=== PATIENT | male | born 1955 | race Caucasian/White ===

== ENCOUNTER → 2020-06-21 10:30 | Outpatient (BNVA) | payer MEDICARE, SELFPAY | PROVIDERS: Family Provider Internal Medicine; Visit Provider Nurse Practitioner Family | DX: E78.5 Hyperlipidemia, unspecified (principal) | CPT/HCPCS: 80053; 80061; 83036; 84443; 85025 ==

== ENCOUNTER → 2021-12-23 10:31 | Outpatient (BNVA) | payer MEDICARE, SELFPAY | PROVIDERS: Family Provider Internal Medicine; PCP Internal Medicine; Visit Provider Internal Medicine | DX: E78.5 Hyperlipidemia, unspecified (principal); G47.33 Obstructive sleep apnea (adult) (pediatric) | CPT/HCPCS: 80053; 80061; 84443; 85025 ==

== ENCOUNTER → 2022-12-04 10:54 | Outpatient (BNVA) | payer MEDICARE, SELFPAY | PROVIDERS: Family Provider Internal Medicine; PCP Family Medicine; Visit Provider Family Medicine | DX: E78.5 Hyperlipidemia, unspecified (principal); H93.19 Tinnitus, unspecified ear; T14.8XXA Other injury of unspecified body region, initial encounter; W57.XXXA Bitten or stung by nonvenomous insect and other nonvenomous arthropods, initial encounter | CPT/HCPCS: 80053; 80061; 84443; 85025; 86618; 86666; 86757 ==

== ENCOUNTER → 2022-12-14 13:41 | Outpatient (BNVA) | payer MEDICARE, SELFPAY | PROVIDERS: Family Provider Internal Medicine; PCP Family Medicine; Visit Provider Nurse Practitioner Family | DX: L57.0 Actinic keratosis (principal); L81.4 Other melanin hyperpigmentation; D22.5 Melanocytic nevi of trunk; L85.3 Xerosis cutis; L57.8 Other skin changes due to chronic exposure to nonionizing radiation; Z71.89 Other specified counseling | CPT/HCPCS: 17004; 99213 ==

== ENCOUNTER → 2023-06-17 13:16 | Outpatient (BNVA) | payer MEDICARE, SELFPAY | PROVIDERS: Family Provider Internal Medicine; PCP Family Medicine; Visit Provider Nurse Practitioner Family | DX: L57.0 Actinic keratosis (principal); L81.4 Other melanin hyperpigmentation; D22.5 Melanocytic nevi of trunk; L57.8 Other skin changes due to chronic exposure to nonionizing radiation; D22.62 Melanocytic nevi of left upper limb, including shoulder | CPT/HCPCS: 17000; 99213 ==

== ENCOUNTER → 2023-08-05 09:49 | Outpatient (BNVA) | payer MEDICARE, SELFPAY | PROVIDERS: Family Provider Internal Medicine; PCP Family Medicine; Visit Provider Family Medicine | DX: I10 Essential (primary) hypertension (principal); E78.5 Hyperlipidemia, unspecified; Z13.6 Encounter for screening for cardiovascular disorders | CPT/HCPCS: 80053; 80061 ==

== ENCOUNTER → 2023-09-03 08:40 | Outpatient (BNVA) | payer MEDICARE, SELFPAY | PROVIDERS: Family Provider Internal Medicine; PCP Family Medicine; Visit Provider Family Medicine | DX: E78.5 Hyperlipidemia, unspecified (principal); I10 Essential (primary) hypertension | CPT/HCPCS: 80048 ==

== ENCOUNTER → 2023-12-16 15:13 | Outpatient (BNVA) | payer MEDICARE, SELFPAY | PROVIDERS: Family Provider Internal Medicine; PCP Family Medicine; Visit Provider Dermatology | DX: D48.5 Neoplasm of uncertain behavior of skin (principal); L57.0 Actinic keratosis; L81.4 Other melanin hyperpigmentation; D22.5 Melanocytic nevi of trunk; B07.8 Other viral warts; L91.8 Other hypertrophic disorders of the skin | CPT/HCPCS: 11102; 17004; 17110; 99213 ==

== ENCOUNTER → 2024-01-05 07:57 | Outpatient (BNVA) | payer MEDICARE, SELFPAY | PROVIDERS: Family Provider Internal Medicine; PCP Family Medicine; Visit Provider Dermatology | DX: C44.612 Basal cell carcinoma of skin of right upper limb, including shoulder (principal) | CPT/HCPCS: 11603; 13121 ==

== ENCOUNTER → 2024-01-18 09:40 | Outpatient (BNVA) | payer MEDICARE, SELFPAY | PROVIDERS: Family Provider Internal Medicine; PCP Family Medicine; Visit Provider Dermatology | DX: C44.319 Basal cell carcinoma of skin of other parts of face (principal); Z48.02 Encounter for removal of sutures; L82.0 Inflamed seborrheic keratosis | CPT/HCPCS: 13132; 17110; 17311 ==

== ENCOUNTER → 2024-04-10 09:31 | Outpatient (BNVA) | payer MEDICARE, SELFPAY | PROVIDERS: Family Provider Internal Medicine; PCP Family Medicine; Visit Provider Specialist | DX: S62.317A Displaced fracture of base of fifth metacarpal bone, left hand, initial encounter for closed fracture; W18.30XA Fall on same level, unspecified, initial encounter | CPT/HCPCS: 73130 ==

== ENCOUNTER 2024-04-10 12:28 | Outpatient (CLI) | payer MEDICARE, SELFPAY | END 2024-04-10 12:29 | disposition home or self-care (01) | LOC: SPT 12:29 | PROVIDERS: Family Provider Internal Medicine; PCP Family Medicine; Visit Provider Specialist | DX: Z46.89 Encounter for fitting and adjustment of other specified devices (principal); S62.317D Displaced fracture of base of fifth metacarpal bone, left hand, subsequent encounter for fracture with routine healing; X58.XXXD Exposure to other specified factors, subsequent encounter | CPT/HCPCS: 26600; 97760; 99204; L3984 ==

== ENCOUNTER 2024-04-11 12:48 | Outpatient (CLI) | payer MEDICARE, SELFPAY ==
--- NOTE | 2024-04-11 13:00 | MR_ITS ---
WS: [id number] MRI HEAD WITH CONTRAST TECHNIQUE: Sagittal T1, T2 axial, T2 axial FLAIR, axial susceptibility weighted imaging, axial diffus ion weighted images, and coronal T2 images were obtained. Pre and post-T1 axial and post T1 coronal i mages. ADC and FSPGR images. CLINICAL INFORMATION: dizziness COMPARISON: MRI 2019 FINDINGS: No evidence of restricted diffusion to suggest acute ischemia. Ventricular system and basal cisterns are patent. Mild small vessel changes. Mild parenchymal volume loss. Normal posterior fossa. Normal vascular flow voids at the skull base. No extra-axial fluid collections. No evidence of mass or mass effect. Mild mucosal thickening in the ethmoid air cells. Mastoid air cells are well aerated. No hemosiderin on susceptibility-weighted images. Incidental benign venous angioma RIGHT cerebellar v ermis. No abnormal intracranial enhancement. Normal dural venous sinuses. Normal optic chiasm and pit uitary infundibulum. No other suspicious findings. MR/MR head wo/w con [id number] IMPRESSION: 1. No evidence of restricted diffusion to suggest acute ischemia 2. Mild small vessel changes. Mild parenchymal volume loss. 3. No hemosiderin on susceptibility-weighted images. 4. Incidental benign venous angioma RIGHT cerebellar vermis. 5. No abnormal intracranial enhancement.
--- NOTE | 2024-04-11 13:45 | MR_ITS ---
WS: [id number] MRA HEAD TECHNIQUE: Axial 3-D TOF images obtained with axial images and axial, sagittal, and coronal 2-D refor matted images. CLINICAL INFORMATION: R42 - Dizziness and giddiness COMPARISON: None. FINDINGS: Distal vertebral arteries are patent. Basilar artery is patent. Normal vascularity to the [employer] territo ry bilaterally. Both ICAs are patent at the skull base. Normal vascularity to the GYPSY and MCA territories bilaterally . No evidence of proximal flow-limiting stenosis or aneurysm. MR/MR angio head wo con [id number] IMPRESSION: 1. Normal intracranial MRA.
[2024-04-11] MEDS: gadobenate dimeglumine 20 mL vial IV (14:04)
== END 2024-04-11 12:49 | disposition home or self-care (01) ==
LOC: RAD 12:48
PROVIDERS: Family Provider Internal Medicine; PCP Family Medicine; Visit Provider Family Medicine
DX: R42 Dizziness and giddiness (principal); I10 Essential (primary) hypertension; D18.02 Hemangioma of intracranial structures
CPT/HCPCS: 70544; 70553; A9577

== ENCOUNTER → 2024-04-24 12:43 | Outpatient (BNVA) | payer MEDICARE, SELFPAY | PROVIDERS: Family Provider Internal Medicine; PCP Family Medicine; Visit Provider Family Medicine | DX: R42 Dizziness and giddiness (principal); E03.9 Hypothyroidism, unspecified | CPT/HCPCS: 80053; 82607; 84443; 85025 ==

== ENCOUNTER → 2024-05-01 09:49 | Outpatient (BNVA) | payer MEDICARE, SELFPAY | PROVIDERS: Family Provider Internal Medicine; PCP Family Medicine; Visit Provider Specialist | DX: S62.317D Displaced fracture of base of fifth metacarpal bone, left hand, subsequent encounter for fracture with routine healing; X58.XXXD Exposure to other specified factors, subsequent encounter | CPT/HCPCS: 73130; 99024 ==

== ENCOUNTER → 2024-05-17 11:01 | Outpatient (BNVA) | payer MEDICARE, SELFPAY | PROVIDERS: Family Provider Internal Medicine; PCP Family Medicine; Visit Provider Specialist | DX: S62.317D Displaced fracture of base of fifth metacarpal bone, left hand, subsequent encounter for fracture with routine healing (principal); X58.XXXD Exposure to other specified factors, subsequent encounter | CPT/HCPCS: 73130; 99024 ==

== ENCOUNTER → 2024-06-27 12:57 | Outpatient (BNVA) | payer MEDICARE, SELFPAY | PROVIDERS: Family Provider Internal Medicine; PCP Family Medicine; Visit Provider Dermatology | DX: L57.0 Actinic keratosis (principal); D22.5 Melanocytic nevi of trunk; L81.4 Other melanin hyperpigmentation; Z08 Encounter for follow-up examination after completed treatment for malignant neoplasm; Z85.828 Personal history of other malignant neoplasm of skin | CPT/HCPCS: 17000; 99214 ==

== ENCOUNTER → 2024-12-18 08:09 | Outpatient (BNVA) | payer MEDICARE, SELFPAY | PROVIDERS: Family Provider Internal Medicine; PCP Family Medicine; Visit Provider Dermatology | DX: L56.8 Other specified acute skin changes due to ultraviolet radiation (principal); D22.5 Melanocytic nevi of trunk; L81.4 Other melanin hyperpigmentation; Z08 Encounter for follow-up examination after completed treatment for malignant neoplasm; Z85.828 Personal history of other malignant neoplasm of skin; L57.0 Actinic keratosis | CPT/HCPCS: 17000; 99213 ==

== ENCOUNTER 2024-12-25 10:26 | Outpatient (RCR) | payer MEDICARE, SELFPAY | END 2024-12-28 23:59 | disposition home or self-care (01) | LOC: SPT 10:26 | PROVIDERS: Visit Provider Family Medicine | DX: H81.90 Unspecified disorder of vestibular function, unspecified ear (principal) | CPT/HCPCS: 97161 ==

== ENCOUNTER 2024-12-29 05:00 | Outpatient (RCR) | payer MEDICARE, SELFPAY | END 2025-01-28 23:59 | disposition home or self-care (01) | LOC: SPT 05:00 | PROVIDERS: Family Provider Internal Medicine; PCP Family Medicine; Visit Provider Family Medicine | DX: H81.90 Unspecified disorder of vestibular function, unspecified ear (principal); H81.11 Benign paroxysmal vertigo, right ear | CPT/HCPCS: 97110 ==

== ENCOUNTER → 2025-01-01 09:52 | Outpatient (BNVA) | payer MEDICARE, SELFPAY | PROVIDERS: Family Provider Internal Medicine; PCP Family Medicine; Visit Provider Student in an Organized Health Care Education/Training Program | DX: K46.9 Unspecified abdominal hernia without obstruction or gangrene (principal) | CPT/HCPCS: 99204 ==

== ENCOUNTER 2025-01-08 08:56 | Outpatient (CLI) | payer MEDICARE, SELFPAY ==
--- NOTE | 2025-01-08 09:15 | CT_ITS ---
WS: [id number] CT ABDOMEN AND PELVIS WITH CONTRAST HISTORY: ventral hernia TECHNIQUE: Imaging performed of the abdomen and pelvis with IV contrast. Single phase imaging of the abdomen. Coronal and sagittal reformats are submitted. All CT scans at [facility] use at least one of these dose optimization techniques: automated exposure control; mA and/or kV adjustment per patient size (includes targeted exams where dose is matched to clinical indication); or iterative reconstruction. IV CONTRAST: Omnipaque 350; 100 mL IV. Oral contrast: No DLP: 984.13 mGy.cm COMPARISON: None available. Lower thorax: Mild dependent changes and pleural thickening at the RIGHT lung base. No pneumonia. Heart is normal size. No hiatal hernia. Liver/biliary system: Normal size with no intrahepatic dilatation. Gallbladder: Normal. No gallstones or wall thickening. No pericholecystic fluid. Pancreas: Normal size pancreas and pancreatic duct. No adjacent inflammation. Spleen: Normal size spleen. No mass or infarct. Adrenal glands: Normal. Right kidney: Normal. Left kidney: Too small to characterize hypodensity mid kidney. Aorta: Normal. Lymphadenopathy: None. Free fluid: None. GI tract: Normally distended stomach. No small bowel obstruction. Appendix is not identified. Soft tissue density in the cecum measures 2.9 cm in diameter. This is surrounded by air and fecal material. No GI tract obstruction. Scattered diverticula. No acute diverticulitis. Abdominal wall: Ventral abdominal wall hernia measures 1.9 cm. Hernia contains fat only. Pelvis: No free fluid or adenopathy within the pelvis. Urinary bladder is minimally distended. There is mild bladder wall thickening due to under distention and possible outlet obstruction. Patent bilateral inguinal canals containing fat. There is a loop of nondilated distal colon in the larger LEFT inguinal hernia. There is no fluid in the hernia sac. No evidence for ischemia. Bones: Degenerative changes in the lumbar spine. CT/CT abdomen pelvis w con* [id number] IMPRESSION: 1. Umbilical fat-containing hernia measures 1.9 cm at its orifice. 2. LEFT inguinal hernia containing fat and a loop of nondilated distal colon. There is no fluid in the hernia sac or findings of of ischemia. 3. RIGHT inguinal hernia contains omentum only. 4. Solid masslike density in the cecum. Mass is surrounded by feces and air. T his may be of fecaloma. Cannot exclude neoplastic mass. Consider evaluation by colonoscopy to exclude a mass near the cecum and base of the terminal ileum.
[2025-01-08 09:57] LABS: Blood Urea Nitrogen 21 mg/dL (8-23)
[2025-01-08] MEDS: iohexol 350 mg/mL 500 mL Btl (per mL) IV (10:03)
== END 2025-01-08 08:57 | disposition home or self-care (01) ==
LOC: RAD 08:58
PROVIDERS: Family Provider Internal Medicine; PCP Family Medicine; Visit Provider Student in an Organized Health Care Education/Training Program
DX: K43.9 Ventral hernia without obstruction or gangrene (principal); K40.20 Bilateral inguinal hernia, without obstruction or gangrene, not specified as recurrent; K63.89 Other specified diseases of intestine
CPT/HCPCS: 74177; 82565; 84520

== ENCOUNTER → 2025-01-18 09:39 | Outpatient (BNVA) | payer MEDICARE, SELFPAY | PROVIDERS: Family Provider Internal Medicine; PCP Family Medicine; Visit Provider Student in an Organized Health Care Education/Training Program | DX: Z09 Encounter for follow-up examination after completed treatment for conditions other than malignant neoplasm (principal); K40.90 Unilateral inguinal hernia, without obstruction or gangrene, not specified as recurrent; K63.89 Other specified diseases of intestine | CPT/HCPCS: 99213 ==

== ENCOUNTER 2025-01-29 05:00 | Outpatient (RCR) | payer MEDICARE, SELFPAY | END 2025-02-27 23:59 | disposition home or self-care (01) | LOC: SPT 05:00 | PROVIDERS: PCP Family Medicine; Visit Provider Family Medicine | DX: H81.90 Unspecified disorder of vestibular function, unspecified ear (principal) | CPT/HCPCS: 95992 ==

== ENCOUNTER → 2025-05-15 08:34 | Outpatient (BNVA) | payer MEDICARE, SELFPAY | PROVIDERS: PCP Family Medicine; Visit Provider Dermatology | DX: L21.8 Other seborrheic dermatitis (principal); D22.4 Melanocytic nevi of scalp and neck; L57.8 Other skin changes due to chronic exposure to nonionizing radiation; D48.5 Neoplasm of uncertain behavior of skin; L57.0 Actinic keratosis | CPT/HCPCS: 11102; 17000; 99213 ==